=== PATIENT | male | born 1950 | race Caucasian/White ===

== ENCOUNTER 2016-10-16 08:56 | Emergency (ER) | payer OTHER ==
--- NOTE | 2016-10-16 09:28 | EDM.PDOC ---
ED HPI Trauma - General Chief Complaint: Lower Extremity Injury/Pain Stated Complaint: R LEG PAIN POST SINUS SURGERY Time Seen by Provider: 10/16/16 09:12 Source: Reports: Patient History Limitations: Reports: No limitations - History of Present Illness INITIAL COMMENTS - FREE TEXT/NARRATIVE: The patient presents with right thigh pain. This started today. He had sinus and nose surgery yesterday. He had 3 polyps removed from his sinuses and they fixed a deviated septum. He denies any injury to that leg. He has no history of DVT or PE. He has bilateral leg edema that is mild. He has no chest pain. He does have shortness of breath at times but he does have asthma. Occurred When: just prior to arrival Occurred Where: home Method of Injury: unknown Severity: moderate Pain/Injury Location: Reports: lower extremity, right (Thigh) Consciousness: Reports: no loss of consciousness Associated Symptoms: Reports: no other symptoms Allergies/ADRs: Allergies No Known Allergies Allergy (Verified 10/16/16 09:02) Home Medications: Ambulatory Orders Albuterol Inhaler. 1 - 2 puff INH ASDIRECTED 01/06/14 [Confirmed 10/16/16] Symbicort Inhaler. 2 puff INH BID 01/06/14 [Confirmed 10/16/16] Azithromycin [Zithromax] 250 mg PO DAILY 10/16/16 [Confirmed 10/16/16] Pantoprazole Sodium [Protonix] 20 mg PO BID 10/16/16 [Confirmed 10/16/16] Prednisone [IJD: Prednisone] 30 mg PO DAILY 10/16/16 [Confirmed 10/16/16] oxyCODONE 5 mg PO Q6HR PRN 10/16/16 [Confirmed 10/16/16] Past Medical History Respiratory History: Reports: Asthma Gastrointestinal History: Reports: GERD Other Gastrointestinal History: 8 colon surgery; colostomy and reanatomosis; reconstuctive surgery and mesh Genitourinary History: Reports: Renal calculus Psychiatric History: Reports: Anxiety Oncologic (Cancer) History: Reports: None - Past Surgical History HEENT Surgical History: Reports: Adenoidectomy, Tonsillectomy Social & Family History - Tobacco Use Smoking Status *Q: Former Smoker Month Tobacco Last Used: 1985 Second Hand Smoke Exposure: No - Alcohol Use Days Per Week of Alcohol Use: 7 Number of Drinks Per Day: 2 Total Drinks Per Week: 14 - Recreational Drug Use Recreational Drug Use: No Review of Systems - Review of Systems Review Of Systems: See Below Constitutional: Reports: no symptoms Eyes: Reports: no symptoms Ears: Reports: no symptoms Nose: Reports: no symptoms Mouth/Throat: Reports: no symptoms Respiratory: Reports: No Symptoms Cardiovascular: Reports: no symptoms GI/Abdominal: Reports: No symptoms Genitourinary: Reports: no symptoms Musculoskeletal: Reports: other (pain to the right thigh and mild edema to both legs) Trauma Exam - Physical Exam Exam: See Below Exam Limited By: No limitations General Appearance: Reports: alert, no apparent distress Head: Reports: atraumatic, normocephalic Ears: Reports: normal external exam Nose: Reports: other (Vani and tape to the front of his nose) Respiratory Exam: Reports: no respiratory distress, wheezing (mild) Cardiovascular: Reports: regular rate, rhythm, no murmur, other (Mild bilateral lower leg edema) GI/Abdominal: Reports: soft, non tender, no organomegaly Extremities: Reports: other (Pain upon palpation to the right lateral thigh. Mild edema to bilateral legs) Course - Vital Signs Last Recorded V/S: Last Vital Signs Temp 97.1 F 10/16/16 09:09 Pulse 95 10/16/16 09:09 Resp 16 10/16/16 09:09 BP 149/90 H 10/16/16 09:09 Pulse Ox 95 10/16/16 09:09 - Orders/Labs/Meds Orders: Active Orders 24 hr Category Date Time Status VL Duplex Lwr Ext Veins Ltd Rt [US] Stat Exams 10/16/16 09:16 Ordered - Re-Assessments/Exams Free Text/Narrative Re-Assessment/Exam: 10/16/16 09:32 I have ordered an US of his right leg to look for DVT. 10/16/16 10:47 The US looks good. There was some possible remnants of an old clot but it compressed good. Departure - Departure Time of Disposition: 10:50 Disposition: Home, Self-Care 01 Condition: good Clinical Impression: Right thigh pain Referrals: Antonietta Sr MD [Primary Care Provider] - Forms: ED Department Discharge Additional Instructions: Try ice to your leg for 15 minutes every other hour while awake for 2 days. Elevate your leg as much as you can for 2 days. Please return if you are worse. - My Orders Last 24 Hours: My Active Orders 10/16/16 09:16 VL Duplex Lwr Ext Veins Ltd Rt [US] Stat - Assessment/Plan Last 24 Hours: My Active Orders 10/16/16 09:16 VL Duplex Lwr Ext Veins Ltd Rt [US] Stat
[2016-10-16 10:51] VITALS: BP 151/91
--- NOTE | 2016-10-17 16:50 | US ---
Right lower extremity deep venous ultrasound: Duplex and color flow imaging was obtained of the right common femoral, superficial femoral, popliteal, posterior tibial and peroneal veins. Left common femoral vein was also evaluated. Findings: Hyperechoic areas are seen within the proximal greater saphenous vein and superficial femoral vein. This most likely represents scarring from old venous thrombosis. Normal phasic flow and augmentation seen throughout the right lower extremity. Lack of phasic flow seen within the posterior tibial vein but normal compression and augmentation seen within the posterior tibial vein. Impression: 1. Findings suspicious for old incomplete clot within the right greater saphenous and superficial femoral vein. Nothing seen to indicate acute deep venous thrombosis. If patient continues to be symptomatic, follow-up study could be obtained. Diagnostic code #2 I agree with preliminary report issued by [facility] (report finalized on 10/16/16, 12:33 PM Central Time)
== END 2016-10-16 11:11 | disposition home or self-care (01) ==
LOC: JD.ED 08:56
DX: M79.651 Pain in right thigh (principal); J45.909 Unspecified asthma, uncomplicated; K21.9 Gastro-esophageal reflux disease without esophagitis; F41.9 Anxiety disorder, unspecified; Z79.899 Other long term (current) drug therapy; Z87.891 Personal history of nicotine dependence
CPT/HCPCS: 93971-26-RT; 93971-RT; 99282; 99283-25; 99284-25

== ENCOUNTER 2019-12-30 13:32 | Emergency (ER) | payer OTHER ==
[2019-12-30 14:07] VITALS: BP 155/90; PULSE 74
[2019-12-30] MEDS ORDERED: Bupivacaine 0.25% 10 ML SDV INJECT ONE (14:47)
--- NOTE | 2019-12-30 14:48 | EDM.PDOC ---
ED HPI GENERAL MEDICAL PROBLEM - General Chief Complaint: Upper Extremity Injury/Pain Stated Complaint: ELBOW SWOLLEN Time Seen by Provider: 12/30/19 14:20 Source of Information: Reports: Patient, Family History Limitations: Reports: No Limitations (Spouse) - History of Present Illness INITIAL COMMENTS - FREE TEXT/NARRATIVE: 69-year-old male attends the ED with persistent swelling of his right elbow for over a month. No known trauma to the area. He states unfortunately the bursa is enlarging and starting to spread down the extensor surface of his proximal forearm. He states it is occasionally sore when he rests it on the armrest of the vehicle while driving. He is not on any blood thinners. He has been taking anti-inflammatory such as Motrin and Aleve with no effect. Onset: Sudden Onset Date: 11/26/19 Duration: Week(s):, Chronic, Getting Worse Location: Reports: Upper Extremity, Right (Right olecranon bursitis of the elbow.) Quality: Reports: Ache Severity: Moderate Improves with: Reports: None Worsens with: Reports: None Context: Reports: Other. Denies: Activity, Exercise, Lifting, Sick Contact, Trauma Associated Symptoms: Denies: Confusion (Ellen is occurrence and he cannot remember any trauma to the area.), Chest Pain, Cough, cough w sputum, Diaphoresis, Fever/Chills, Headaches, Loss of Appetite, Malaise, Rash, Seizure, Syncope Treatments INDEPENDENT CONSULTANT: Reports: NSAIDS (Sling Motrin.) Right Elbow Pain Score (Numeric/FACES): 2 - Related Data Allergies Allergy/AdvReac Type Severity Reaction Status Date / Time No Known Allergies Allergy Verified 12/30/19 14:07 Home Meds: Home Meds Albuterol Inhaler. 1 - 2 puff INH ASDIRECTED 01/06/14 [History] Symbicort Inhaler. 2 puff INH BID 01/06/14 [History] Azithromycin [Zithromax] 250 mg PO DAILY 10/16/16 [History] Pantoprazole Sodium [Protonix] 20 mg PO BID 10/16/16 [History] Prednisone [IJD: Prednisone] 30 mg PO DAILY 10/16/16 [History] oxyCODONE 5 mg PO Q6HR PRN 10/16/16 [History] Past Medical History HEENT History: Reports: Cataract Respiratory History: Reports: Asthma Gastrointestinal History: Reports: GERD Other Gastrointestinal History: 8 colon surgery; colostomy and reanatomosis;reconstuctive surgery and mesh Genitourinary History: Reports: Renal Calculus Musculoskeletal History: Reports: None Neurological History: Reports: None Psychiatric History: Reports: Anxiety Endocrine/Metabolic History: Reports: None Oncologic (Cancer) History: Reports: None Dermatologic History: Reports: None - Infectious Disease History Infectious Disease History: Reports: None - Past Surgical History HEENT Surgical History: Reports: Adenoidectomy, Tonsillectomy, Other (See Below) Other HEENT Surgeries/Procedures: lens in left eye Musculoskeletal Surgical History: Reports: None Social & Family History - Family History Family Medical History: Noncontributory - Tobacco Use Smoking Status *Q: Never Smoker - Caffeine Use Caffeine Use: Reports: None - Recreational Drug Use Recreational Drug Use: No - Living Situation & Occupation Living situation: Reports: Occupation: Employed Review of Systems - Review of Systems Review Of Systems: See Below Constitutional: Reports: No Symptoms Eyes: Reports: Glasses Ears: Reports: Other (Mildly hearing impaired. Does not wear) Nose: Reports: No Symptoms ( hearing aids) Mouth/Throat: Reports: No Symptoms Respiratory: Reports: No Symptoms Cardiovascular: Reports: No Symptoms. Denies: Chest Pain, Edema, Irregular Heart Rate, Syncope, Other GI/Abdominal: Reports: No Symptoms Genitourinary: Reports: Other (Urinary frequency. Nocturia x2. Known BPH.) Musculoskeletal: Reports: Back Pain, Joint Pain (Hips neck and shoulders at times.) Skin: Reports: No Symptoms Neurological: Reports: No Symptoms Psychiatric: Reports: No Symptoms ED EXAM, GENERAL - Physical Exam Exam: See Below Exam Limited By: No Limitations General Appearance: Alert, WD/WN, No Apparent Distress, Other (Temperature is 36.6 with a heart rate of 74 and sinus respiratory to 16 BP 155/90. Pulse ox 95 to 97% on room air) Eye Exam: Bilateral Eye: Normal Inspection (No blepharal pallor or scleral icterus.) Neck: Limited Range of Motion (Mild loss of lateral rotation and flexion), Tender Lateral ( due to osteoarthritic change. Mild bilateral tenderness of the cervical spine.). No: Carotid Bruit, Lymphadenopathy (L), Lymphadenopathy (R) Respiratory/Chest: No Respiratory Distress, Lungs Clear, Normal Breath Sounds, No Accessory Muscle Use Cardiovascular: Normal Peripheral Pulses, Regular Rate, Rhythm, No Edema, No Gallop, No Murmur, No Rub Extremities: Other (Examination of the right elbow shows a very large olecranon bursitis that is starting to protrude down the proximal extensor surface of his forearm. It is fluctuant nontender apparently was quite red yesterday but is very minimally warm to palpation and no erythema today.) Neurological: Alert, Oriented, CN II-XII Intact, Normal Cognition Psychiatric: Normal Affect, Normal Mood Skin Exam: Warm, Dry, Intact, Normal Color, No Rash Course - Vital Signs Last Recorded V/S: Last Vital Signs Temp 36.6 C 12/30/19 14:04 Pulse 74 12/30/19 14:04 Resp 16 12/30/19 14:04 BP 155/90 H 12/30/19 14:04 Pulse Ox 95 12/30/19 14:04 - Orders/Labs/Meds Meds: Medications Discontinued Medications Generic Name Dose Route Start Last Admin Trade Name Carolyn PRN Reason Stop Dose Admin Bupivacaine HCl 10 ml 12/30/19 14:47 Sensorcaine-Mpf 0.25% INJECT 12/30/19 14:48 ONETIME ONE Bupivacaine HCl Confirm 12/30/19 14:52 12/30/19 15:02 Sensorcaine-Mpf 0.5% Administered 12/30/19 14:53 10 ml Dose Administration 10 ml .ROUTE .STK-MED ONE Triamcinolone Acetonide 40 mg 12/30/19 14:47 Kenalog-40 INJECT 12/30/19 14:48 ONETIME ONE Triamcinolone Acetonide Confirm 12/30/19 14:52 12/30/19 15:02 Kenalog-40 Administered 12/30/19 14:53 40 mg Dose Administration 40 mg .ROUTE .STK-MED ONE - Radiology Interpretation Free Text/Narrative:: 69-year-old male attends the ED due to gradually increasing size of a right olecranon bursitis. He estimates been present for over a month. It is now seem to be developing a increased swelling over the proximal extensor surface of the forearm. He has no known history of trauma to the area. He has been taking Motrin and Aleve without relief. Discussed the options with him and decision made to proceed with drainage under local anesthetic and instillation of Kenalog . I did x-rayed about 10 days ago and no problems were identified in the elbow through the walk-in clinic. - Re-Assessments/Exams Free Text/Narrative Re-Assessment/Exam: 12/30/19 15:25 patient tolerated the procedure well. Drained approximate 32 mils of serosanguineous fluid from his right olecranon bursa. Instilled 40 mg of Kenalog into the bursa without issue. Patient is to follow-up if the inflammation and swelling does not improve dramatically over the next 3 to 4 weeks. Departure - Departure Time of Disposition: 15:17 Disposition: Home, Self-Care 01 Condition: Fair Clinical Impression: Olecranon bursitis of right elbow - Discharge Information *PRESCRIPTION DRUG MONITORING PROGRAM REVIEWED*: Not Applicable Instructions: Elbow Bursitis, [id number] Referrals: Caleb Sotomayor MD [Primary Care Provider] - Forms: ED Department Discharge Additional Instructions: Evaluation in the emergency room today in regards to persistent swelling of the right elbow which we call olecranon bursitis. No known injuries although is usually mild trauma that sets it off. The bursa secretes an excessive amount of fluid causing the swelling. We drained the bursa today of approximately 32 mils of serosanguineous fluid without any signs of infection. I placed 40 mg of Kenalog inside the bursa to try and reduce the inflammation over the next week or 2. If it reoccurs in the next 3 weeks it should be drained again. In 600 mg every 6 hours as necessary for pain relief. Sepsis Event Note (ED) - Evaluation Sepsis Screening Result: No Definite Risk - Focused Exam Vital Signs: Vital Signs Temp Pulse Resp BP Pulse Ox 12/30/19 14:04 36.6 C 74 16 155/90 H 95 Arthrocentesis - Arthrocentesis Arthrocentesis Indication: fluid aspiration Location: right, bursa (Right elbow) Prep: CDC/MBT Guidelines, Sterile Drapes, Chlorhexidine Local anesthesia: other (Bupivacaine 0.5%) Local anesthesia volume: 3cc Needle: 18 gauge Fluid: bloody Volume of fluid removed (mls): 32 Medication Instilled: marcaine mls: (3 mils), triamcinolone mgs: (40 mg) Complications: No Dressing: adhesive dressing
[2019-12-30] MEDS ORDERED: Triamcinolone Acetonide 40 MG/ML 1 ML SDV ONE (14:52)
[2019-12-30] MEDS ORDERED: Bupivacaine 0.5% 10 ML SDV ONE (14:52)
== END 2019-12-30 15:38 | disposition home or self-care (01) ==
LOC: JD.ED 13:32
DX: M70.21 Olecranon bursitis, right elbow (principal); K21.9 Gastro-esophageal reflux disease without esophagitis; J45.909 Unspecified asthma, uncomplicated; Z79.899 Other long term (current) drug therapy; Z87.442 Personal history of urinary calculi
CPT/HCPCS: 20605; 99283; J3301; J3490; 20610; 99282

== ENCOUNTER 2020-01-23 09:05 | Emergency (ER) | payer OTHER ==
[2020-01-23 09:15] VITALS: BP 144/94; PULSE 76
--- NOTE | 2020-01-23 09:37 | EDM.PDOC ---
ED HPI GENERAL MEDICAL PROBLEM - General Chief Complaint: Upper Extremity Injury/Pain Stated Complaint: R ELBOW INJURY Time Seen by Provider: 01/23/20 09:20 Source of Information: Reports: Patient History Limitations: Reports: No Limitations - History of Present Illness INITIAL COMMENTS - FREE TEXT/NARRATIVE: The patient presents with right elbow pain and swelling. He was here about 3 weeks ago for right elbow olecranon bursitis and it was drained and then he was given kenalog. He said he was doing fine until this morning when he was getting into his truck he grabbed the door handle and twisted his arm and now he has pain and swelling again. Onset: Sudden Duration: Minutes: Location: Reports: Lower Extremity, Right (elbow) Quality: Reports: Sharp Severity: Moderate Improves with: Reports: Immobilization Worsens with: Reports: Movement Context: Denies: Trauma Associated Symptoms: Reports: No Other Symptoms Right Elbow Pain Score (Numeric/FACES): 6 - Related Data Allergies Allergy/AdvReac Type Severity Reaction Status Date / Time No Known Allergies Allergy Verified 01/23/20 09:15 Home Meds: Home Meds Albuterol Inhaler. 1 - 2 puff INH ASDIRECTED 01/06/14 [History] Symbicort Inhaler. 2 puff INH BID 01/06/14 [History] Azithromycin [Zithromax] 250 mg PO DAILY 10/16/16 [History] Pantoprazole Sodium [Protonix] 20 mg PO BID 10/16/16 [History] Prednisone [IJD: Prednisone] 30 mg PO DAILY 10/16/16 [History] oxyCODONE 5 mg PO Q6HR PRN 10/16/16 [History] Past Medical History HEENT History: Reports: Cataract Respiratory History: Reports: Asthma Gastrointestinal History: Reports: GERD Other Gastrointestinal History: 8 colon surgery; colostomy and reanatomosis;reconstuctive surgery and mesh Genitourinary History: Reports: Renal Calculus Musculoskeletal History: Reports: None Neurological History: Reports: None Psychiatric History: Reports: Anxiety Endocrine/Metabolic History: Reports: None Oncologic (Cancer) History: Reports: None Dermatologic History: Reports: None - Infectious Disease History Infectious Disease History: Reports: None - Past Surgical History HEENT Surgical History: Reports: Adenoidectomy, Tonsillectomy, Other (See Below) Other HEENT Surgeries/Procedures: lens in left eye Musculoskeletal Surgical History: Reports: None Social & Family History - Family History Family Medical History: Noncontributory - Tobacco Use Smoking Status *Q: Current Every Day Smoker Years of Tobacco use: 1 Packs/Tins Daily: 1 - Caffeine Use Caffeine Use: Reports: Coffee - Recreational Drug Use Recreational Drug Use: No - Living Situation & Occupation Living situation: Reports: Occupation: Employed Review of Systems - Review of Systems Review Of Systems: See Below Constitutional: Reports: No Symptoms Eyes: Reports: No Symptoms Ears: Reports: No Symptoms Nose: Reports: No Symptoms Mouth/Throat: Reports: No Symptoms Respiratory: Reports: No Symptoms Cardiovascular: Reports: No Symptoms GI/Abdominal: Reports: No Symptoms Genitourinary: Reports: No Symptoms Musculoskeletal: Reports: Other (Right elbow pain and swelling) ED EXAM, GENERAL - Physical Exam Exam: See Below Exam Limited By: No Limitations General Appearance: Alert, No Apparent Distress Ears: Normal External Exam Nose: Normal Inspection Throat/Mouth: Normal Inspection Neck: Normal Inspection Respiratory/Chest: No Respiratory Distress Extremities: Other (Right elbow pain upon palpation with edema to the olecronon process. Good sensation and pulses distally.) ED TRAUMA EXTREMITY PROCEDURES - I&D Site: Right elbow Skin Prep: Other (Chlorprep) Local Anesthesia: Lidocaine: Other (LET) Area Incised With: Needle Drainage: Bloody Probed to Break Up Loculations: No Complications: No Course - Vital Signs Last Recorded V/S: Last Vital Signs Temp 97.6 F 01/23/20 09:12 Pulse 76 01/23/20 09:12 Resp 20 01/23/20 09:12 BP 144/94 H 01/23/20 09:12 Pulse Ox 95 01/23/20 09:12 - Orders/Labs/Meds Orders: Active Orders 24 hr Category Date Time Status CRYSTALS,BODY FLUID [BF] Stat Lab 01/23/20 10:41 Ordered CULTURE BODY FLUID + SMEAR [RM] Stat Lab 01/23/20 10:41 Ordered SYNOVIAL FLUID ANALYSIS [BF] Stat Lab 01/23/20 10:40 Ordered Meds: Medications Discontinued Medications Generic Name Dose Route Start Last Admin Trade Name Freq PRN Reason Stop Dose Admin Lidocaine/Tetracaine 1 ml 01/23/20 09:43 01/23/20 09:50 Let Soln TOP 01/23/20 09:44 1 ml ONETIME ONE Administration Triamcinolone Acetonide 20 mg 01/23/20 09:51 Kenalog-40 INJECT 01/23/20 09:52 ONETIME ONE - Re-Assessments/Exams Free Text/Narrative Re-Assessment/Exam: 01/23/20 09:39 I have ordered an x-ray of his elbow. 01/23/20 10:43 His x-ray looks good. I put LET over the olecranon process and I drained about 35mls of bloody fluid. I then put some kenalog 20mg in the bursa. I put a pressure dressing on him. I sent the fluid for culture and cell analysis. I will have him follow up with Dr Elise. Departure - Departure Time of Disposition: 10:50 Disposition: Home, Self-Care 01 Condition: Good Clinical Impression: Olecranon bursitis of right elbow - Discharge Information *PRESCRIPTION DRUG MONITORING PROGRAM REVIEWED*: Not Applicable *COPY OF PRESCRIPTION DRUG MONITORING REPORT IN PATIENT [place]: Not Applicable Referrals: Caleb Sotomayor MD [Primary Care Provider] - Andrew Elise MD [Physician] - 1 Week Forms: ED Department Discharge Additional Instructions: Leave the dressing on until tonight. After that clean the wound with warm soapy water 2 times per day and apply antibiotic ointment after. Follow up with Dr Elise. Sepsis Event Note (ED) - Evaluation Sepsis Screening Result: No Definite Risk - Focused Exam Vital Signs: Vital Signs Temp Pulse Resp BP Pulse Ox 01/23/20 09:12 97.6 F 76 20 144/94 H 95 - My Orders Last 24 Hours: My Active Orders 01/23/20 10:40 SYNOVIAL FLUID ANALYSIS [BF] Stat 01/23/20 10:41 CRYSTALS,BODY FLUID [BF] Stat CULTURE BODY FLUID + SMEAR [RM] Stat - Assessment/Plan Last 24 Hours: My Active Orders 01/23/20 10:40 SYNOVIAL FLUID ANALYSIS [BF] Stat 01/23/20 10:41 CRYSTALS,BODY FLUID [BF] Stat CULTURE BODY FLUID + SMEAR [RM] Stat
[2020-01-23] MEDS ORDERED: Lidocaine/EPINEPHrine/Tetracaine Soln 1 ML TOP ONE (09:43)
[2020-01-23] MEDS ORDERED: Triamcinolone Acetonide 40 MG/ML 1 ML MDV INJECT ONE (09:51)
--- NOTE | 2020-01-23 10:04 | CR ---
Right elbow: 4 views of the right elbow were obtained. Diffuse soft tissue swelling is seen posteriorly. No joint effusion is seen. Joint spaces are preserved. No acute fracture or other bony abnormality is appreciated. Impression: 1. Diffuse posterior soft tissue swelling. 2. No acute bony abnormality is appreciated. Diagnostic code #3 This report was dictated in MDT
== END 2020-01-23 10:50 | disposition home or self-care (01) ==
LOC: JD.ED 09:05
DX: M70.31 Other bursitis of elbow, right elbow (principal); J45.909 Unspecified asthma, uncomplicated; K21.9 Gastro-esophageal reflux disease without esophagitis; F17.210 Nicotine dependence, cigarettes, uncomplicated; Z79.899 Other long term (current) drug therapy
CPT/HCPCS: 20605; 73080; 87070; 87205; 89060; 99283; J3301; 99282

== ENCOUNTER 2020-02-14 15:42 | Emergency (ER) | payer OTHER ==
[2020-02-14 16:00] VITALS: BP 157/93; PULSE 66
--- NOTE | 2020-02-14 16:49 | EDM.PDOC ---
ED HPI GENERAL MEDICAL PROBLEM - General Chief Complaint: Upper Extremity Injury/Pain Stated Complaint: ABSCESS ON ELBOW Time Seen by Provider: 02/14/20 16:49 - History of Present Illness INITIAL COMMENTS - FREE TEXT/NARRATIVE: 69-year-old male presents the emergency room with what he thinks is an abscess on his elbow. The patient has some discomfort above his elbow especially when he is trying to flex his elbow. Several weeks ago the patient tried to pull himself up and had something give out in his lower upper arm. He is not sure if he bumped his elbow but he developed an olecranon bursitis. X-rays were done shortly after the time of injury that were unrevealing except for some soft tissue swelling. The patient can fully extend his elbow but if he tries to internally rotate his arm too much he gets some discomfort in his lower upper arm on the flexor musculature. His regular physician did drain this bursa that does not look infected according to the lab results he has on his phone. He does not have any fevers or chills no redness or warmth over the area. - Related Data Allergies Allergy/AdvReac Type Severity Reaction Status Date / Time No Known Allergies Allergy Verified 01/23/20 09:15 Home Meds: Home Meds Albuterol Inhaler. 1 - 2 puff INH ASDIRECTED 01/06/14 [History] Symbicort Inhaler. 2 puff INH BID 01/06/14 [History] Past Medical History HEENT History: Reports: Cataract Respiratory History: Reports: Asthma Gastrointestinal History: Reports: GERD Other Gastrointestinal History: 8 colon surgery; colostomy and reanatomosis;reconstuctive surgery and mesh Genitourinary History: Reports: Renal Calculus Musculoskeletal History: Reports: None Neurological History: Reports: None Psychiatric History: Reports: Anxiety Endocrine/Metabolic History: Reports: None Oncologic (Cancer) History: Reports: None Dermatologic History: Reports: None - Infectious Disease History Infectious Disease History: Reports: None - Past Surgical History HEENT Surgical History: Reports: Adenoidectomy, Tonsillectomy, Other (See Below) Other HEENT Surgeries/Procedures: lens in left eye Musculoskeletal Surgical History: Reports: None Social & Family History - Family History Family Medical History: Noncontributory - Tobacco Use Smoking Status *Q: Never Smoker Second Hand Smoke Exposure: No - Caffeine Use Caffeine Use: Reports: Coffee - Living Situation & Occupation Living situation: Reports: Occupation: Employed Review of Systems - Review of Systems Review Of Systems: See Below Constitutional: Reports: No Symptoms Respiratory: Reports: No Symptoms Cardiovascular: Reports: No Symptoms GI/Abdominal: Reports: No Symptoms Neurological: Reports: No Symptoms ED EXAM, GENERAL - Physical Exam Exam: See Below Exam Limited By: No Limitations General Appearance: Alert, No Apparent Distress Head: Atraumatic, Normocephalic Neck: Normal Inspection, Supple, Non-Tender, Full Range of Motion Respiratory/Chest: No Respiratory Distress, Lungs Clear, Normal Breath Sounds Cardiovascular: Regular Rate, Rhythm, No Edema, No Murmur Extremities: Other (Patient is is consistent with an olecranon bursa he has no redness or warmth over the area no drainage. The patient can fully extend his elbow supination pronation are fairly well intact but when he tries to go to full pronation he gets some discomfort in his lower portion of his upper arm flexor surface and he has some muscle tenderness here with palpation) Course - Vital Signs Last Recorded V/S: Last Vital Signs Temp 36.6 C 02/14/20 15:56 Pulse 66 02/14/20 15:56 Resp 16 02/14/20 15:56 BP 157/93 H 02/14/20 15:56 Pulse Ox 97 02/14/20 15:56 - Re-Assessments/Exams Free Text/Narrative Re-Assessment/Exam: 02/14/20 18:17 Repeat x-rays are negative for acute fracture dislocation or other bony abnormality he is got soft tissue swelling in the area of the olecranon bursa and slightly proximal to this starting to come up the posterior aspect of the upper arm. I discussed the findings of this with the patient will have him start using an Naresh wrap over the area to loosely compress the area he was using an Naresh wrap before but he I think it sounds like it was going on too tight this will help this from developing more wont necessarily make it go away any sooner. Will not reaspirated with the risk of infection and the fluid will reaccumulate fairly quickly Departure - Departure Time of Disposition: 18:18 Disposition: Home, Self-Care 01 Clinical Impression: Olecranon bursitis of right elbow - Discharge Information Referrals: Caleb Sotomayor MD [Primary Care Provider] - Forms: ED Department Discharge Additional Instructions: Turn to the emergency room with any questions problems or worsening symptoms. Use the Naresh wrap should be a little snug but not over tied if is leaving corcoran in your skin are causing your hand to puff up it is too tight if it causes any numbness or tingling in your hand is too tight. Error on the side of keeping it on the loose side. Follow-up with your regular physician this next week for recheck. Sepsis Event Note (ED) - Evaluation Sepsis Screening Result: No Definite Risk - Focused Exam Vital Signs: Vital Signs Temp Pulse Resp BP Pulse Ox 02/14/20 15:56 36.6 C 66 16 157/93 H 97
--- NOTE | 2020-02-14 18:00 | CR ---
Right elbow: 4 views of the right elbow were obtained. Comparison: No previous elbow study. Joint spaces are preserved. No joint effusion is seen. No acute fracture, dislocation or other bony abnormality is identified. Soft tissue swelling is seen posteriorly which appears slightly proximal to the olecranon bursa. Impression: 1. Soft tissue swelling slightly proximal to the expected region of the olecranon bursa. 2. No bony abnormality is appreciated on right elbow study. Diagnostic code #3 This report was dictated in MDT
== END 2020-02-14 18:40 | disposition home or self-care (01) ==
LOC: JD.ED 15:42
DX: M70.21 Olecranon bursitis, right elbow (principal); J45.909 Unspecified asthma, uncomplicated; Z79.899 Other long term (current) drug therapy
CPT/HCPCS: 73080-26-RT; 73080-RT; 99282; 99283-25

== ENCOUNTER 2020-04-07 03:18 | Emergency (ER) | payer OTHER ==
[2020-04-07 03:29] VITALS: BP 164/103; PULSE 72
[2020-04-07] MEDS ORDERED: Ondansetron 4 MG/2 ML SDV IVPUSH ONE (03:47)
[2020-04-07] MEDS ORDERED: HYDROmorphone 1 MG/ML Syringe IVPUSH STA (03:47)
--- NOTE | 2020-04-07 03:55 | EDM.PDOC ---
ED HPI GENERAL MEDICAL PROBLEM - General Chief Complaint: Abdominal Pain Stated Complaint: abdominal pain Time Seen by Provider: 04/07/20 03:28 Source of Information: Reports: Patient History Limitations: Reports: No Limitations - History of Present Illness INITIAL COMMENTS - FREE TEXT/NARRATIVE: Mr. De Leon is a very pleasant 70-year-old gentleman who now presents to the ED with right upper quadrant abdominal pain. He states that he developed sharp right upper quadrant abdominal pain around 18:30 to 19:00, after eating dinner consisting of meat loaf, mashed potatoes with gravy, and peas, around 17:00 to 17:30 last night. The pain radiates through to his lower right back. He has not identified any modifiers. No associated nausea, vomiting, or diarrhea. No recent fever. No associated urinary symptoms. The patient states that he has had similar pain in the past, when he experienced a kidney stone. The patient did not take any [id number] or home remedies prior to coming to the ED. Here in the ED, the patient's initial BP is found to be elevated at 164/103, otherwise, he is hemodynamically stable, afebrile, saturating 96% on room air. The patient states that he last ate around 17:30 last night. Other than tonight's abdominal pain, the patient states that he has a slight chronic cough. Otherwise, he denies having a recent fever, chills, sore throat, ear pain, nasal or sinus congestion, dyspnea, chest pain, palpitations, nausea, vomiting, constipation, diarrhea, abdominal pain, urinary symptoms, recent weight gain or weight loss, recent bloody bowel movements or black bowel movements, recent joint aches, headaches, or rashes. The patient's PCP is Dr. Caleb Sotomayor. He has not received an influenza vaccine this season, but agreed to receive one here today. Right Abdominal Pain Score (Numeric/FACES): 8 - Related Data Allergies Allergy/AdvReac Type Severity Reaction Status Date / Time No Known Allergies Allergy Verified 04/07/20 03:29 Home Meds: Home Meds Albuterol Inhaler. 1 - 2 puff INH ASDIRECTED 01/06/14 [History] Symbicort Inhaler. 2 puff INH BID 01/06/14 [History] Acetaminophen/oxyCODONE [Percocet 325-5 MG] 1 - 2 tab PO Q6H PRN #30 tab 04/07/20 [Rx] Ondansetron [Zofran ODT] 1 tab PO Q8H PRN #16 tab.dis 04/07/20 [Rx] Past Medical History Respiratory History: Reports: Asthma (PFT-proven) Gastrointestinal History: Reports: Diverticulosis (diverticulitis), GERD Genitourinary History: Reports: Renal Calculus Psychiatric History: Reports: Anxiety (untreated) Endocrine/Metabolic History: Reports: None - Past Surgical History HEENT Surgical History: Reports: Adenoidectomy, Cataract Surgery (bilateral), Oral Surgery (dental extractions), Tonsillectomy GI Surgical History: Reports: Colon (Hemicolectomy for diverticulitis, with 2 subsequent colostomies and an ileostomy, with reversal), Hernia, Inguinal (right) Social & Family History - Family History Family Medical History: Noncontributory - Tobacco Use Tobacco Use Status *Q: Former Tobacco User Tobacco Use Within Last Twelve Months: Vaping (Nicotine) Years of Tobacco use: 29 Packs/Tins Daily: 0.5 Month/Year Tobacco Last Used: Quit 1984 - Caffeine Use Caffeine Use: Reports: Coffee - Alcohol Use Alcohol Use History: Yes Alcohol Use Frequency: Socially - Recreational Drug Use Recreational Drug Use: No - Living Situation & Occupation Living situation: Reports: , with Spouse, with Family (Son + his girlfriend) Occupation: Employed ([employer] truck driver) ED ROS GENERAL - Review of Systems Review Of Systems: Comprehensive ROS is negative, except as noted in HPI. ED EXAM, GI/ABD - Physical Exam Exam: See Below Exam Limited By: No Limitations General Appearance: Alert, WD/WN, Mild Distress (appears uncomfortable) Eyes: Bilateral: Normal Appearance, EOMI Ears: Normal External Exam, Hearing Grossly Normal Nose: Normal Inspection Throat/Mouth: Normal Inspection, No Airway Compromise, Other (Wearing a mask) Head: Atraumatic, Normocephalic Neck: Normal Inspection, Full Range of Motion Respiratory/Chest: No Respiratory Distress, Lungs Clear, Normal Breath Sounds, No Accessory Muscle Use Cardiovascular: Normal Peripheral Pulses, Regular Rate, Rhythm, No Edema, No Gallop, No JVD, No Murmur, No Rub GI/Abdominal Exam: Normal Bowel Sounds, Soft, No Organomegaly, No Distention, No Abnormal Bruit, No Mass, Tender (Exquisite, to the right upper quadrant only. Essentially nontender elsewhere.) Back Exam: Normal Inspection, Full Range of Motion. No: CVA Tenderness (L), CVA Tenderness (R) Extremities: Normal Inspection, Normal Range of Motion, No Pedal Edema, Normal Capillary Refill Neurological: Alert, Oriented, Normal Cognition, No Motor/Sensory Deficits Psychiatric: Normal Affect Skin Exam: Warm, Dry, Intact, Normal Color, No Rash Course - Vital Signs Last Recorded V/S: Last Vital Signs Temp 36.2 C 04/07/20 03:26 Pulse 72 04/07/20 03:26 Resp 16 04/07/20 03:26 BP 164/103 H 04/07/20 03:26 Pulse Ox 96 04/07/20 03:26 - Orders/Labs/Meds Orders: Active Orders 24 hr Category Date Time Status Influenza Vaccine Charge [RC] .DISCHARGE Care 04/07/20 03:49 Active Abdomen Ltd [US] Stat Exams 04/07/20 03:49 Taken Abdomen Pelvis w Cont [CT] Stat Exams 04/07/20 03:47 Taken Sodium Chloride 0.9% [Normal Saline] 1,000 ml Med 04/07/20 04:00 Active IV ASDIRECTED Medication Orders Sodium Chloride (Normal Saline) 1,000 mls @ 150 mls/hr IV ASDIRECTED AARON Last Admin: 04/07/20 03:58 Dose: 150 mls/hr Documented by: SELENE Labs: Laboratory Tests 04/07/20 04/07/20 Range/Units 03:35 03:35 WBC 13.43 H (4.23-9.07) K/mm3 RBC 5.15 (4.63-6.08) M/mm3 Hgb 16.5 D (13.7-17.5) gm/dl Hct 48.8 (40.1-51.0) % MCV 94.8 H D (79.0-92.2) fl MCH 32.0 (25.7-32.2) pg MCHC 33.8 (32.2-35.5) g/dl RDW Std Deviation 42.3 (35.1-43.9) fL Plt Count 198 D (163-337) K/mm3 MPV 10.1 (9.4-12.3) fl Neutrophils % (Manual) 88 H (40-60) % Band Neutrophils % 0 (0-10) % Lymphocytes % (Manual) 6 L (20-40) % Atypical Lymphs % 0 % Monocytes % (Manual) 4 (2-10) % Eosinophils % (Manual) 2 (0.8-7.0) % Basophils % (Manual) 0 L (0.2-1.2) Platelet Estimate Adequate Plt Morphology Comment Normal RBC Morph Comment Normal Sodium 137 (136-145) mEq/L Potassium 4.3 (3.5-5.1) mEq/L Chloride 101 (98-107) mEq/L Carbon Dioxide 28 (21-32) mEq/L Anion Gap 12.3 (5-15) BUN 14 (7-18) mg/dL Creatinine 1.1 (0.7-1.3) mg/dL Est Cr Clr Drug Dosing TNP Estimated GFR (MDRD) > 60 (>60) mL/min BUN/Creatinine Ratio 12.7 L (14-18) Glucose 127 H (80-115) mg/dL Calcium 9.1 (8.5-10.1) mg/dL Magnesium 1.8 (1.8-2.4) mg/dl Total Bilirubin 0.7 (0.2-1.0) mg/dL AST 16 (15-37) U/L ALT 26 (16-63) U/L Alkaline Phosphatase 90 (46-116) U/L Total Protein 6.7 (6.4-8.2) g/dl Albumin 3.6 (3.4-5.0) g/dl Globulin 3.1 gm/dL Albumin/Globulin Ratio 1.2 (1-2) Lipase 389 (73-393) U/L Meds: Medications Generic Name Dose Route Start Last Admin Trade Name Freq PRN Reason Stop Dose Admin Sodium Chloride 1,000 mls @ 150 mls/hr 04/07/20 04:00 04/07/20 03:58 Normal Saline IV 150 mls/hr ASDIRECTED AARON Administration Discontinued Medications Generic Name Dose Route Start Last Admin Trade Name Freq PRN Reason Stop Dose Admin Diatrizoate Meglum/Diatrizoate Sod 120 ml 04/07/20 06:59 04/07/20 07:01 Gastrografin 37% PO 04/07/20 07:00 120 ml ONETIME ONE Administration Hydromorphone HCl 1 mg 04/07/20 03:47 04/07/20 03:59 Dilaudid IVPUSH 04/07/20 03:48 1 mg ONETIME STA Administration Influenza Virus Vaccine 1 each 04/07/20 03:49 Pharmacy To Dose - Influenza Vaccine IM 04/07/20 03:50 ONETIME ONE Influenza Virus Vaccine 240 mcg 04/07/20 04:00 Fluzone High-Dose Quad 2020-21 IM 04/07/20 04:01 .ONCE ONE Iopamidol 100 ml 04/07/20 06:59 04/07/20 07:00 Isovue-300 (61%) IVPUSH 04/07/20 07:00 100 ml ONETIME ONE Administration Ondansetron HCl 4 mg 04/07/20 03:47 04/07/20 03:58 Zofran IVPUSH 04/07/20 03:48 4 mg ONETIME ONE Administration Sodium Chloride 10 ml 04/07/20 06:59 04/07/20 07:00 Saline Flush FLUSH 04/07/20 07:00 10 ml ONETIME ONE Administration - Re-Assessments/Exams Free Text/Narrative Re-Assessment/Exam: 04/07/20 03:50 As above, the patient developed right upper quadrant abdominal pain that radiates through to his lower right back around an hour after eating a fatty meal last night. No associated nausea, vomiting, or diarrhea. He is afebrile. On examination, he is exquisitely tender to his right upper quadrant, and he has no CVA tenderness. While the patient states that his symptoms are similar to her prior kidney stone, his presentation is not at all consistent with a ureterolith, but is consistent with acute cholecystitis. I have ordered an evaluation that includes blood work, an ultrasound of the right upper quadrant, to be followed by a CT of the abdomen and pelvis with oral and IV contrast. In the meantime, the patient will be given IV Dilaudid, IV Zofran, and IV fluid. 04/07/20 05:10 The patient's CBC is remarkable for WBC count elevated at 13.43, but with 0% b andemia, and the remainder of his CBC is unremarkable. His CMP is remarkable for blood glucose mildly elevated at 127, with the remainder of his CMP being unremarkable. His magnesium level is within normal limits at 1.8. His lipase is within normal limits at 389. 10/19/20 06:19 Ultrasound of the right upper quadrant is read by [facility] as: 1. Gallbladder with nonmobile layering stones or dense sludge, without significant wall thickening or pericholecystic fluid. 2. Pancreas obscured by bowel gas. 3. Aorta not well visualized, dilated up to 3.4 cm proximally. Consider alternate imaging for more complete evaluation or otherwise follow-up in 2 years. 04/07/20 08:14 CT of the abdomen and pelvis with oral and IV contrast is read by [facility] as: 1. Thinning of the anterior abdominal wall musculature with small hernias as above, including a small supraumbilical midline hernia which contains a short segment of nonobstructed small bowel. 2. Mildly fatty liver. 3. Mild sigmoid colonic diverticulosis without evidence for diverticulitis. 4. Moderate hiatal hernia. 5. Small fat-containing bilateral inguinal hernias. 6. Large prostate containing coarse calcifications. 04/07/20 08:52 Test results discussed with the patient. He states that he is feeling considerably better. I believe that his pain is from his gallbladder, although I cannot prove it. Further evaluation, including a HIDA scan, is necessary. I will therefore discharge him home with prescriptions for Percocet and Zofran, and the advice that he eat as low-fat a diet as possible. I will have him follow-up with Dr. Davis for further evaluation. Departure - Departure Time of Disposition: 08:53 Disposition: Home, Self-Care 01 Condition: Good Clinical Impression: Right upper quadrant abdominal pain of unknown etiology - Discharge Information *PRESCRIPTION DRUG MONITORING PROGRAM REVIEWED*: Not Applicable *COPY OF PRESCRIPTION DRUG MONITORING REPORT IN PATIENT [place]: Not Applicable Prescriptions: Acetaminophen/oxyCODONE [Percocet 325-5 MG] 1 - 2 tab PO Q6H PRN #30 tab PRN Reason: Pain (Severe 7-10) Ondansetron [Zofran ODT] 1 tab PO Q8H PRN #16 tab.dis PRN Reason: Nausea/Vomiting Referrals: Devon Davis MD [Physician] - Caleb Sotomayor MD [Physician] - Forms: ED Department Discharge Additional Instructions: You were seen in the emergency room after developing upper right abdominal pain that radiated through to your right back. Work-up in the ER included blood work, an ultrasound of your right upper quadrant, and a CT of your abdomen and pelvis with oral and IV contrast. Your blood work was unremarkable. The ultrasound found that you have gallstones, but no associated inflammation, and the CT scan did not find anything that might explain your upper right abdominal pain. Based on your history, physical exam, and ER tests, your abdominal pain is most likely due to your gallbladder, however, more testing is necessary. We recommend that you eat as low-fat a diet as tolerable. Any fat in your diet may cause you to have pain. You have been provided with prescriptions for the opioid pain reliever Percocet and the antinausea medicine Zofran. Take 1 to 2 tablets of Percocet up to every 6 hours, as needed for pain. If you take Percocet, do not drive or operate heavy machinery for 12 hours afterwards. Percocet may cause constipation, so consider taking a stool softener. You may dissolve 1 tablet of Zofran on your tongue up to every 8 hours, as needed for nausea/vomiting. Stay adequately hydrated. Follow-up with the Surgeon Dr. Devon Davis at the next available appointment, for further evaluation. If any other problems, please do not hesitate to return to the ER. Sepsis Event Note (ED) - Evaluation Sepsis Screening Result: No Definite Risk - Focused Exam Vital Signs: Vital Signs Temp Pulse Resp BP Pulse Ox 04/07/20 03:26 36.2 C 72 16 164/103 H 96 - My Orders Last 24 Hours: My Active Orders 04/07/20 03:47 Abdomen Pelvis w Cont [CT] Stat 04/07/20 03:49 Influenza Vaccine Charge [RC] .DISCHARGE Abdomen Ltd [US] Stat 04/07/20 04:00 Sodium Chloride 0.9% [Normal Saline] 1,000 ml IV ASDIRECTED - Assessment/Plan Last 24 Hours: My Active Orders 04/07/20 03:47 Abdomen Pelvis w Cont [CT] Stat 04/07/20 03:49 Influenza Vaccine Charge [RC] .DISCHARGE Abdomen Ltd [US] Stat 04/07/20 04:00 Sodium Chloride 0.9% [Normal Saline] 1,000 ml IV ASDIRECTED
[2020-04-07] MEDS ORDERED: Sodium Chloride 0.9% 1,000 ML IV SCH (04:00)
[2020-04-07] MEDS ORDERED: FLU Vacc QV2020-21(65YR UP)/PF 240 MCG/0.7 ML Syringe IM ONE (04:00)
[2020-04-07] MEDS ORDERED: Diatrizoate Meglumine/Diatrizoate Sodium 37% 120 ML Bottle PO ONE (06:59)
[2020-04-07] MEDS ORDERED: Sodium Chloride 0.9% 10 ML Syringe FLUSH ONE (06:59)
[2020-04-07] MEDS: Iopamidol 612 MG/ML 100 ML Bottle IVPUSH ONE (07:00)
--- NOTE | 2020-04-15 14:41 | CT ---
"PROCEDURE INFORMATION: Exam: CT Abdomen And Pelvis With Contrast Exam date and time: 04/07/2020 6:03 AM Age: 70 years old Clinical indication: Abdominal pain; Patient HX: Ruq pain tenderness TECHNIQUE: Imaging protocol: Computed tomography of the abdomen and pelvis with intravenous contrast. Radiation optimization: All CT scans at this facility use at least one of these dose optimization techniques: automated exposure control; mA and/or kV adjustment per patient size (includes targeted exams where dose is matched to clinical indication); or iterative reconstruction. Contrast material: ISOVUE; Contrast volume: 100 ml; Contrast route: INTRAVENOUS (IV); COMPARISON: OT Abdomen Ltd 04/07/2020 4:40 AM FINDINGS: Lungs: The visualized lung bases demonstrate minor dependent atelectasis. Mediastinal space: There is a moderate-sized hiatal hernia. Liver: The liver is mildly fatty in density. It appears otherwise unremarkable. Gallbladder and bile ducts: No gallstones are evident, but ultrasound would be more sensitive. No gross biliary ductal dilatation. Pancreas: Normal. No ductal dilation. Spleen: The spleen contains a 2.3 cm cyst, which is benign and does not require follow-up. It appears otherwise unremarkable. Adrenals: Normal. No mass. Kidneys and ureters: The right kidney demonstrates mild cortical scarring. The left kidney contains a 4 mm nonobstructing stone and demonstrates mild cortical scarring. The kidneys appear otherwise unremarkable. Stomach and bowel: The small bowel is not obstructed. There is mild sigmoid colonic diverticulosis without evidence for diverticulitis. The large bowel is otherwise grossly unremarkable in appearance. Appendix: No evidence of appendicitis. СВЕТЛАНА BROCK | Final Radiology Report CONFIDENTIALITY STATEMENT This report is intended only for use by the referring physician, and only in accordance with law. If you received this in error, call [phone]. Page 2 of 2 Intraperitoneal space: No free air or significant free fluid. Vasculature: The abdominal aorta is nonaneurysmal. Atherosclerotic vascular calcifications are noted. Lymph nodes: Unremarkable. No enlarged lymph nodes. Urinary bladder: Unremarkable as visualized. Reproductive: The prostate is large, measuring 4.9 x 4.1 cm, and contains coarse calcifications. Bones/joints: Degenerative changes involve the spine, sacroiliac joints and hips. Soft tissues: There are small fat containing bilateral inguinal hernias. The anterior abdominal wall musculature is largely thinned. A small fat containing hernia involves the left anterior abdominal wall at the level of the umbilicus. Another hernia along the midline more superiorly contains a short segment of nonobstructed small bowel. IMPRESSION: 1. Thinning of the anterior abdominal wall musculature with small hernias as above, including a small supraumbilical midline hernia which contains a short segment of nonobstructed small bowel. 2. Mildly fatty liver. 3. Mild sigmoid colonic diverticulosis without evidence for diverticulitis. 4. Moderate hiatal hernia. 5. Small fat containing bilateral inguinal hernias. 6. Large prostate containing coarse calcifications. Thank you for allowing us to participate in the care of your patient. Dictated and Authenticated by: Luis Engel MD 04/07/2020 9:12 AM Central Time ([place] & [place]) CONFIDENTIALITY STATEMENT This report is intended only for use by the referring physician, and only in accordance with law. If you received this in error, call [phone]. Page 2 of 2 MTDD"
--- NOTE | 2020-04-15 14:43 | US ---
"PROCEDURE INFORMATION: Exam: US Abdomen, Limited; Right Upper Quadrant Exam date and time: 04/07/2020 4:40 AM Age: 70 years old Clinical indication: Abdominal pain; Tenderness; Right upper quadrant (ruq); Prior surgery; Surgery date: 6+ months; Surgery type: Patient states 8 surgeries on colon TECHNIQUE: Imaging protocol: US abdomen. Real time ultrasound with image documentation. Limited exam focused on the right upper quadrant. COMPARISON: US Abdomen Ltd 12/07/2013 3:12 PM (report not provided) FINDINGS: Liver: The liver is homogeneous in echotexture. No demonstrated mass or intrahepatic biliary ductal dilatation. Gallbladder: The gallbladder contains a nonmobile hyperechoic shadowing area, which could represent small layering stones or dense sludge. The gallbladder wall is not significantly thickened, and there is no significant pericholecystic fluid. Sonographic Couch sign reportedly could not be assessed due to patient pain medication. Common bile duct: The common bile duct is normal in size for a patient of this age at 5.2 mm. Pancreas: The pancreas is obscured by overlying bowel gas. Right kidney: The right kidney measures 11.7 x 6.3 x 4.3 cm. It contains a 1.7 x 1.2 x 1.3 cm simple cyst. No hydronephrosis or demonstrated stone or mass. Aorta: The aorta was not well visualized. As seen proximally, it is dilated up to 3.4 cm. Portal venous: Portal venous flow is normal in direction. Inferior vena cava: The IVC is present. IMPRESSION: 1. Gallbladder with nonmobile layering stones or dense sludge, without significant wall thickening or pericholecystic fluid. 2. Pancreas obscured by bowel gas. СВЕТЛАНА BROCK | Final Radiology Report CONFIDENTIALITY STATEMENT This report is intended only for use by the referring physician, and only in accordance with law. If you received this in error, call [phone]. Page 2 of 2 3. Aorta not well visualized, dilated up to 3.4 cm proximally. Consider alternate imaging for more complete evaluation or otherwise follow-up in 2 years. Thank you for allowing us to participate in the care of your patient. Dictated and Authenticated by: Luis Engel MD 04/07/2020 6:35 AM Central Time ([place] & [place]) CONFIDENTIALITY STATEMENT This report is intended only for use by the referring physician, and only in accordance with law. If you received this in error, call [phone]. Page 2 of 2 MTDD"
== END 2020-04-07 09:12 | disposition home or self-care (01) ==
LOC: JD.ED 03:18
DX: R10.11 Right upper quadrant pain (principal); J45.909 Unspecified asthma, uncomplicated; Z79.899 Other long term (current) drug therapy; Z87.891 Personal history of nicotine dependence
CPT/HCPCS: 36415; 74177; 76705; 80053; 83690; 83735; 85007; 85027; 96374; 96375; 99284; J1170; J2405; J7030; Q9963; Q9967

== ENCOUNTER 2022-10-30 23:01 | Inpatient (IN) | payer BC, OTHER ==
[2022-10-30] MEDS ORDERED: Morphine 4 MG/ML Syringe IVPUSH ONE (23:09)
[2022-10-30] MEDS ORDERED: Ondansetron 4 MG/2 ML SDV IVPUSH PRN (23:09)
[2022-10-30 23:23] LABS: BASOPHILS ABSOLUTE AUTO 0.04 K/mm3 (0.01-0.08); BASOPHILS PERCENT AUTO 0.4 % (0.1-1.2); EOSINOPHILS ABSOLUTE AUTO 0.68 K/mm3 (0.04-0.54); EOSINOPHILS PERCENT AUTO 6.7 (0.8-7.0); HEMATOCRIT 47.8 % (40.1-51.0); HEMOGLOBIN 16.5 gm/dl (13.7-17.5); IMMATURE GRAN ABSOLUTE AUTO 0.04 K/mm3 (0.00-0.10); IMMATURE GRAN PERCENT AUTO 0.4 % (<=1.0); LYMPHOCYTES PERCENT AUTO 9.9 % (21.8-53.1); MEAN CORPUSCULAR HGB CONC 34.5 g/dl (32.2-35.5); MEAN CORPUSCULAR VOLUME 98.4 fl (79.0-92.2); MEAN PLATELET VOLUME 9.6 fl (9.4-12.3); MONOCYTES ABSOLUTE AUTO 0.64 K/mm3 (0.30-0.82); MONOCYTES PERCENT AUTO 6.3 % (5.3-12.2); NEUTROPHILS ABSOLUTE AUTO 7.71 K/mm3 (1.78-5.38); NEUTROPHILS PERCENT AUTO 76.3 % (34.0-67.9); PLATELET COUNT,PLT 180 K/mm3 (163-337); RED BLOOD CELL COUNT 4.86 M/mm3 (4.63-6.08); WHITE BLOOD CELL COUNT,WBC 10.11 K/mm3 (4.23-9.07)
[2022-10-30 23:50] LABS: A/G RATIO 1.1 (1-2); ALBUMIN 3.4 g/dl (3.4-5.0); ANION GAP 8.2 (5-15); BILIRUBIN TOTAL 0.8 mg/dL (0.2-1.0); CALCIUM 8.6 mg/dL (8.5-10.1); EST CRCL DRUG DOSING (CG) 74.37 mL/min; POTASSIUM,K 4.2 mEq/L (3.5-5.1); PROTEIN TOTAL,TP 6.4 g/dl (6.4-8.2)
[2022-10-31] MEDS ORDERED: Iopamidol 612 MG/ML 100 ML Bottle IVPUSH ONE (00:12)
[2022-10-31] MEDS ORDERED: HYDROmorphone 0.5 MG/0.5 ML Syringe IVPUSH ONE (01:28)
[2022-10-31] MEDS ORDERED: Lactated Ringers 1,000 ML IV SCH (01:45)
[2022-10-31] MEDS ORDERED: Ondansetron 4 MG/2 ML SDV IVPUSH PRN (03:53)
[2022-10-31] MEDS: HYDROmorphone 0.5 MG/0.5 ML Syringe IVPUSH PRN ×5 (04:07→20:55)
[2022-10-31] MEDS: Piperacillin/Tazobactam 3.375 GM in Sodium Chloride 0.9% 100 ML IV SCH ×2 (04:08→04:18)
[2022-10-31 04:20] LABS: APPEARANCE,URINE CLEAR (Clear); BILIRUBIN,URINE NEGATIVE (Negative); COLOR,URINE YELLOW (Yellow); GLUCOSE,URINE NEGATIVE (Negative); KETONES,URINE TRACE (Negative); LEUKOCYTE ESTERASE,URINE NEGATIVE (Negative); NITRITE,URINE NEGATIVE (Negative); OCCULT BLOOD,URINE NEGATIVE (Negative); PH,URINE 5.5 (5.0-8.0); PROTEIN,URINE NEGATIVE (Negative)
[2022-10-31 04:29] LABS: BACTERIA,URINE RARE /hpf (FEW); EPITHELIAL CELLS,URINE NOT SEEN /hpf (0-5); RBC,URINE 0-5 /hpf (0-5); WBC,URINE 0-5 /hpf (0-5)
[2022-10-31 04:30] LABS: MUCUS,URINE NOT SEEN /hpf (FEW)
[2022-10-31] MEDS ORDERED: D5 1/2 NS w/ 20 mEq/L KCl 1,000 ML IV SCH (07:30)
[2022-10-31 08:05] LABS: HEMOGLOBIN 15.7 gm/dl (13.7-17.5); MEAN CORPUSCULAR HEMOGLOBIN 33.3 pg (25.7-32.2); MEAN CORPUSCULAR HGB CONC 33.4 g/dl (32.2-35.5); MEAN CORPUSCULAR VOLUME 99.6 fl (79.0-92.2); MEAN PLATELET VOLUME 10.1 fl (9.4-12.3); PLATELET COUNT,PLT 174 K/mm3 (163-337); RED BLOOD CELL COUNT 4.72 M/mm3 (4.63-6.08); WHITE BLOOD CELL COUNT,WBC 11.13 K/mm3 (4.23-9.07)
[2022-10-31 08:15] LABS: A/G RATIO 1.1 (1-2); ALBUMIN 3.1 g/dl (3.4-5.0); ANION GAP 8.3 (5-15); CALCIUM 8.3 mg/dL (8.5-10.1); CREATININE 1.1 mg/dL (0.7-1.3); EST CRCL DRUG DOSING (CG) 67.61 mL/min; POTASSIUM,K 4.3 mEq/L (3.5-5.1); PROTEIN TOTAL,TP 5.9 g/dl (6.4-8.2)
[2022-10-31] MEDS: Piperacillin/Tazobactam 4.5 GM in Sodium Chloride 0.9% 100 ML IV SCH ×2 (11:04→20:55)
[2022-10-31] MEDS ORDERED: Acetaminophen/HYDROcodone 325-10 MG Tab PO PRN (11:13)
[2022-10-31] MEDS ORDERED: Dextrose 5%-0.9% NaCl 1,000 ML IV SCH (11:30)
[2022-10-31] MEDS: Heparin Sodium 5,000 Units/ML Vial SUBCUT SCH ×2 (12:52→20:56)
[2022-10-31] MEDS: Pantoprazole 40 MG Vial IVPUSH SCH (12:53)
[2022-10-31] MEDS ORDERED: Albuterol 6.7 GM Inhaler INH PRN (14:12)
[2022-10-31] MEDS: Albuterol/Ipratropium 3.0-0.5 MG/3 ML Neb Soln NEB PRN ×2 (14:38→20:20)
[2022-10-31] MEDS: Formoterol/Mometasone 200-5 MCG 8.8 GM Inhaler IH SCH (20:20)
[2022-11-01] MEDS: Albuterol/Ipratropium 3.0-0.5 MG/3 ML Neb Soln NEB PRN ×2 (00:21→08:26)
[2022-11-01] MEDS: Heparin Sodium 5,000 Units/ML Vial SUBCUT SCH ×2 (05:05→11:43)
[2022-11-01] MEDS: Piperacillin/Tazobactam 4.5 GM in Sodium Chloride 0.9% 100 ML IV SCH ×2 (05:05→11:43)
[2022-11-01 06:02] LABS: BASOPHILS ABSOLUTE AUTO 0.03 K/mm3 (0.01-0.08); BASOPHILS PERCENT AUTO 0.3 % (0.1-1.2); EOSINOPHILS ABSOLUTE AUTO 0.44 K/mm3 (0.04-0.54); EOSINOPHILS PERCENT AUTO 4.7 (0.8-7.0); HEMATOCRIT 43.8 % (40.1-51.0); HEMOGLOBIN 14.5 gm/dl (13.7-17.5); IMMATURE GRAN ABSOLUTE AUTO 0.04 K/mm3 (0.00-0.10); IMMATURE GRAN PERCENT AUTO 0.4 % (<=1.0); LYMPHOCYTES ABSOLUTE AUTO 1.34 K/mm3 (1.32-3.57); LYMPHOCYTES PERCENT AUTO 14.3 % (21.8-53.1); MEAN CORPUSCULAR HEMOGLOBIN 33.6 pg (25.7-32.2); MEAN CORPUSCULAR HGB CONC 33.1 g/dl (32.2-35.5); MEAN CORPUSCULAR VOLUME 101.4 fl (79.0-92.2); MEAN PLATELET VOLUME 10.4 fl (9.4-12.3); MONOCYTES PERCENT AUTO 11.7 % (5.3-12.2); NEUTROPHILS ABSOLUTE AUTO 6.43 K/mm3 (1.78-5.38); NEUTROPHILS PERCENT AUTO 68.6 % (34.0-67.9); PLATELET COUNT,PLT 176 K/mm3 (163-337); RED BLOOD CELL COUNT 4.32 M/mm3 (4.63-6.08); WHITE BLOOD CELL COUNT,WBC 9.38 K/mm3 (4.23-9.07)
[2022-11-01 06:07] LABS: A/G RATIO 0.9 (1-2); ALBUMIN 2.6 g/dl (3.4-5.0); ANION GAP 9.4 (5-15); BUN/CREATININE RATIO 10.8 (14-18); CREATININE 1.3 mg/dL (0.7-1.3); EST CRCL DRUG DOSING (CG) 57.21 mL/min; POTASSIUM,K 4.4 mEq/L (3.5-5.1); PROTEIN TOTAL,TP 5.4 g/dl (6.4-8.2)
[2022-11-01] MEDS: HYDROmorphone 0.5 MG/0.5 ML Syringe IVPUSH PRN (08:00)
[2022-11-01] MEDS: Pantoprazole 40 MG Vial IVPUSH SCH (08:04)
[2022-11-01] MEDS: Formoterol/Mometasone 200-5 MCG 8.8 GM Inhaler IH SCH (08:28)
[2022-11-01] MEDS ORDERED: Non-Formulary Medication 1 Each SCH (09:00)
[2022-11-01 17:19] VITALS: BP 107/79; PULSE 77
== END 2022-11-01 15:53 | disposition home or self-care (01) ==
LOC: JD.ED 23:01 → JD.MS 10-31 10:40
PROVIDERS: ADMIT Surgery; ATTEND Surgery
DX: K81.0 Acute cholecystitis (principal); K57.30 Diverticulosis of large intestine without perforation or abscess without bleeding; K21.9 Gastro-esophageal reflux disease without esophagitis; F41.9 Anxiety disorder, unspecified; J44.9 Chronic obstructive pulmonary disease, unspecified; Z98.49 Cataract extraction status, unspecified eye; Z98.890 Other specified postprocedural states; Z79.899 Other long term (current) drug therapy; Z79.51 Long term (current) use of inhaled steroids; Z90.49 Acquired absence of other specified parts of digestive tract; Z93.3 Colostomy status
CPT/HCPCS: 36415; 71045; 71045-26; 74177; 74177-26; 76705; 76705-26; 80053; 81001; 82947; 83605; 83690; 84484; 85025; 85027; 93005; 93010; 94640; 94760; 96361; 96365; 96366; 96367; 96372; 96375; 96376; 99285; 99285-25; A9270-GY; C9113; J1170; J1644; J2270; J2405; J2543; J3480; J3490; J7042; J7120; J7620-GY; Q9967

== ENCOUNTER 2024-02-06 07:37 | Emergency (ER) | payer BC ==
[2024-02-06] MEDS: Lidocaine 1% 10 ML MDV INJECT ONE (08:20)
[2024-02-06 08:53] VITALS: BP 160/102; PULSE 73
== END 2024-02-06 08:53 | disposition home or self-care (01) ==
LOC: JD.ED 07:37
DX: M70.21 Olecranon bursitis, right elbow (principal); F17.210 Nicotine dependence, cigarettes, uncomplicated; J45.909 Unspecified asthma, uncomplicated; K21.9 Gastro-esophageal reflux disease without esophagitis; Z79.899 Other long term (current) drug therapy
CPT/HCPCS: 20605; 99283-25; J3490

== ENCOUNTER 2024-02-09 07:24 | Emergency (ER) | payer BC ==
[2024-02-09] MEDS: Triamcinolone Acetonide 40 MG/ML 1 ML SDV INJECT ONE (08:08)
[2024-02-09] MEDS: cefTRIAXone 2 GM in Sodium Chloride 0.9% 100 ML IV ONE (08:08)
[2024-02-09] MEDS: Lidocaine 1% 10 ML MDV INJECT ONE (08:09)
[2024-02-09] MEDS: Sodium Chloride 0.9% 10 ML Syringe FLUSH PRN (08:09)
[2024-02-09 08:33] LABS: C-REACTIVE PROTEIN 8.28 mg/dL (<0.30)
[2024-02-09 08:43] LABS: URIC ACID 6.2 mg/dL (3.5-7.2)
[2024-02-09 08:52] VITALS: BP 131/85; PULSE 77
== END 2024-02-09 08:45 | disposition home or self-care (01) ==
LOC: JD.ED 07:24
DX: M70.21 Olecranon bursitis, right elbow (principal); L03.113 Cellulitis of right upper limb; K21.9 Gastro-esophageal reflux disease without esophagitis; Z79.899 Other long term (current) drug therapy
CPT/HCPCS: 20605; 36415; 84550; 86140; 96365; 99152; 99283; 99283-25; J0696; J3301; J3490

== ENCOUNTER 2024-04-10 11:43 | Emergency (ER) | payer BC ==
[2024-04-10] MEDS: Triamcinolone Acetonide 40 MG/ML 1 ML SDV INJECT ONE (12:59)
[2024-04-10] MEDS: Bupivacaine 0.25% 10 ML SDV INJECT ONE (12:59)
[2024-04-10] MEDS: Lidocaine 1% 10 ML MDV INJECT ONE (12:59)
[2024-04-10 13:48] LABS: WBC,SYNOVIAL FLUID 139 cells/uL (0-200)
[2024-04-10 13:52] LABS: SITE,SYNOVIAL FLUID RIGHT ELBOW
[2024-04-10 13:57] VITALS: BP 145/87; PULSE 78
[2024-04-10 13:57] LABS: VOLUME SYNOVIAL FLUID 38
[2024-04-10 13:58] LABS: APPEARANCE SYNOVIAL FLUID SLIGHTLY CLOUDY (CLEAR); COLOR,SYNOVIAL FLUID YELLOW
== END 2024-04-10 13:36 | disposition home or self-care (01) ==
LOC: JD.ED 11:43
DX: M70.21 Olecranon bursitis, right elbow (principal); J45.909 Unspecified asthma, uncomplicated; Z90.89 Acquired absence of other organs; Z79.51 Long term (current) use of inhaled steroids; Z79.1 Long term (current) use of non-steroidal anti-inflammatories (NSAID); Z79.899 Other long term (current) drug therapy
CPT/HCPCS: 20605; 73080; 89060; 99283; J0665; J3301; J3490

== ENCOUNTER 2024-06-05 10:14 | Observation (INO) | payer BC, MEDICARE ==
[~2024-06-05 10:14] MED LIST: Sodium Chloride 0.9% 10 ML Syringe FLUSH PRN
[2024-06-05] MEDS: Lactated Ringers 1,000 ML IV SCH ×2 (10:30→19:47)
[2024-06-05] MEDS ORDERED: Rocuronium 50 MG/5 ML Vial ONE ×3 (11:18→14:14)
[2024-06-05] MEDS ORDERED: Dexamethasone 4 MG/ML 5 ML MDV ONE (11:18)
[2024-06-05] MEDS ORDERED: Ondansetron 4 MG/2 ML SDV ONE (11:18)
[2024-06-05] MEDS ORDERED: Lidocaine 1% 4 ML ONE (11:19)
[2024-06-05] MEDS ORDERED: fentaNYL 100 MCG/2 ML SDV ONE ×2 (11:19→12:19)
[2024-06-05] MEDS ORDERED: Midazolam 1 MG/ML 2 ML SDV ONE (11:19)
[2024-06-05] MEDS ORDERED: Propofol 200 MG/20 ML SDV ONE ×2 (11:19→12:17)
[2024-06-05] MEDS ORDERED: ceFAZolin 2 GM Vial ONE (11:22)
[2024-06-05] MEDS: Bupivacaine 0.5% 30 ML SDV ONE (11:54)
[2024-06-05] MEDS ORDERED: ePHEDrine 50 MG/ML SDV ONE (11:59)
[2024-06-05] MEDS ORDERED: Glycopyrrolate 0.2 MG/ML 2 ML SDV ONE (12:05)
[2024-06-05] MEDS ORDERED: dexmedeTOMIDine HCl 200 MCG/2 ML SDV ONE (12:20)
[2024-06-05] MEDS ORDERED: Ondansetron 4 MG/2 ML SDV IVPUSH PRN (13:55)
[2024-06-05] MEDS ORDERED: HYDROmorphone 0.5 MG/0.5 ML Syringe IVPUSH PRN (13:55)
[2024-06-05] MEDS ORDERED: fentaNYL 100 MCG/2 ML SDV IVPUSH PRN (13:55)
[2024-06-05] MEDS ORDERED: HYDROmorphone 0.5 MG/0.5 ML Syringe ONE (14:17)
[2024-06-05] MEDS ORDERED: Sugammadex Sodium 200 MG/2 ML VIAL IV ONE (14:27)
[2024-06-05] MEDS ORDERED: Ketorolac 30 MG/ML SDV ONE (14:27)
[2024-06-05] MEDS: EPINEPHrine 1 MG/ML SDV ONE (15:45)
[2024-06-05] MEDS ORDERED: Ondansetron 4 MG Tab.DIS PO PRN (16:14)
[2024-06-05] MEDS ORDERED: Promethazine 25 MG Tab PO PRN (16:14)
[2024-06-05] MEDS ORDERED: Acetaminophen 325 MG Tab PO PRN (16:14)
[2024-06-05] MEDS ORDERED: Benzocaine/Cetylpyridinium/Menthol Lozenge MUCMEM PRN (16:20)
[2024-06-05] MEDS ORDERED: Simethicone 80 MG Tab.Chew PO PRN (16:21)
[2024-06-05] MEDS ORDERED: diphenhydrAMINE 50 MG/ML SDV IVPUSH PRN (16:21)
[2024-06-05] MEDS: Sodium Chloride 0.9% 10 ML Syringe FLUSH SCH (17:09)
[2024-06-05] MEDS: Formoterol/Mometasone 200-5 MCG 8.8 GM Inhaler INH SCH (20:17)
[2024-06-05] MEDS: oxyCODONE 5 MG Tab PO PRN (20:29)
[2024-06-06] MEDS: HYDROmorphone 0.5 MG/0.5 ML Syringe IVPUSH PRN (02:10)
[2024-06-06 04:42] LABS: BASOPHILS PERCENT AUTO 0.1 % (0.0-1.0); EOSINOPHILS PERCENT AUTO 0.1 % (0.0-6.0); HEMATOCRIT 45.2 % (42.0-52.0); HEMOGLOBIN 14.9 gm/dl (14.0-18.0); IMMATURE GRAN ABSOLUTE AUTO 0.04 K/mm3 (0.00-0.05); IMMATURE GRAN PERCENT AUTO 0.4 % (0.0-0.4); LYMPHOCYTES ABSOLUTE AUTO 0.8 K/mm3 (1.0-4.8); LYMPHOCYTES PERCENT AUTO 7.2 % (24.0-44.0); MEAN CORPUSCULAR HEMOGLOBIN 33.6 pg (28.0-32.0); MEAN CORPUSCULAR VOLUME 101.8 fl (83.0-99.0); MEAN PLATELET VOLUME 10.8 fl (9.4-12.4); MONOCYTES ABSOLUTE AUTO 0.9 K/mm3 (0.0-0.8); MONOCYTES PERCENT AUTO 8.7 % (0.0-8.0); NEUTROPHILS ABSOLUTE AUTO 8.9 K/mm3 (1.8-7.7); NEUTROPHILS PERCENT AUTO 83.5 % (41.0-71.0); PLATELET COUNT,PLT 143 K/mm3 (150-400); RED BLOOD CELL COUNT 4.44 M/mm3 (4.52-5.90); WHITE BLOOD CELL COUNT,WBC 10.66 K/mm3 (3.9-11.3)
[2024-06-06 05:11] LABS: ANION GAP 10.8 (5-15); BUN/CREATININE RATIO 17.8 (14-18); CALCIUM 8.2 mg/dL (8.5-10.1); CREATININE 0.9 mg/dL (0.7-1.3); EST CRCL DRUG DOSING (CG) 84.99 mL/min; POTASSIUM,K 4.8 mEq/L (3.5-5.1)
[2024-06-06] MEDS: Albuterol 6.7 GM Inhaler INH SCH (08:06)
[2024-06-06 09:35] VITALS: BP 137/79; PULSE 63
== END 2024-06-06 10:56 | disposition home or self-care (01) ==
LOC: JD.SDS 10:14 → JD.MS 16:15
PROVIDERS: ADMIT Surgery; ATTEND Surgery
DX: K44.9 Diaphragmatic hernia without obstruction or gangrene (principal); K66.0 Peritoneal adhesions (postprocedural) (postinfection); K21.00 Gastro-esophageal reflux disease with esophagitis, without bleeding; F17.200 Nicotine dependence, unspecified, uncomplicated; Z79.899 Other long term (current) drug therapy
CPT/HCPCS: 36415; 43235; 43280; 80048; 85025; 94640; 94760; 94761; A9270; C1781; J0171; J0665; J0690; J1100; J1171; J1885; J2250; J2405; J2704; J3010; J3490; J7120

== ENCOUNTER 2024-06-07 09:03 | Emergency (ER) | payer BC, MEDICARE ==
[2024-06-07 09:15] VITALS: BP 124/75; PULSE 84
[2024-06-07] MEDS ORDERED: Sodium Chloride 0.9% 10 ML Syringe FLUSH PRN (09:23)
[2024-06-07] MEDS: Ondansetron 4 MG/2 ML SDV IVPUSH ONE (09:54)
[2024-06-07] MEDS: HYDROmorphone 0.5 MG/0.5 ML Syringe IVPUSH ONE (09:54)
[2024-06-07 09:55] LABS: BASOPHILS PERCENT AUTO 0.3 % (0.0-1.0); EOSINOPHILS ABSOLUTE AUTO 0.1 K/mm3 (0.0-0.4); EOSINOPHILS PERCENT AUTO 0.8 % (0.0-6.0); HEMATOCRIT 40.7 % (42.0-52.0); HEMOGLOBIN 14.1 gm/dl (14.0-18.0); IMMATURE GRAN ABSOLUTE AUTO 0.04 K/mm3 (0.00-0.05); IMMATURE GRAN PERCENT AUTO 0.4 % (0.0-0.4); LYMPHOCYTES ABSOLUTE AUTO 0.7 K/mm3 (1.0-4.8); LYMPHOCYTES PERCENT AUTO 6.2 % (24.0-44.0); MEAN CORPUSCULAR HEMOGLOBIN 33.6 pg (28.0-32.0); MEAN CORPUSCULAR HGB CONC 34.6 g/dl (32.0-36.0); MEAN PLATELET VOLUME 10.1 fl (9.4-12.4); MONOCYTES ABSOLUTE AUTO 1.6 K/mm3 (0.0-0.8); MONOCYTES PERCENT AUTO 13.9 % (0.0-8.0); NEUTROPHILS ABSOLUTE AUTO 8.8 K/mm3 (1.8-7.7); NEUTROPHILS PERCENT AUTO 78.4 % (41.0-71.0); PLATELET COUNT,PLT 146 K/mm3 (150-400); WHITE BLOOD CELL COUNT,WBC 11.18 K/mm3 (3.9-11.3)
[2024-06-07 10:01] LABS: MEAN CORPUSCULAR VOLUME 96.9 fl (83.0-99.0)
[2024-06-07 10:16] LABS: A/G RATIO 1.1 (1-2); ALBUMIN 2.9 g/dl (3.4-5.0); ANION GAP 9.8 (5-15); BILIRUBIN TOTAL 0.9 mg/dL (0.2-1.0); C-REACTIVE PROTEIN 7.07 mg/dL (<0.30); EST CRCL DRUG DOSING (CG) 72.21 mL/min; POTASSIUM,K 3.8 mEq/L (3.5-5.1); PROTEIN TOTAL,TP 5.6 g/dl (6.4-8.2)
[2024-06-07 10:34] LABS: SLIDE REVIEW ABNORMAL SMEAR
[2024-06-07] MEDS: oxyCODONE 5 MG Tab PO ONE (11:08)
== END 2024-06-07 11:15 | disposition home or self-care (01) ==
LOC: JD.ED 09:03
DX: G89.18 Other acute postprocedural pain (principal)
CPT/HCPCS: 36415; 80053; 84484; 85025; 86140; 93005; 96374; 96375; 99284; A9270; J2405; 93010

== ENCOUNTER 2024-08-08 18:55 | Emergency (ER) | payer BC ==
[2024-08-08 20:10] VITALS: PULSE 65
[2024-08-08] MEDS ORDERED: Sodium Chloride 0.9% 10 ML Syringe FLUSH PRN (20:13)
[2024-08-08] MEDS ORDERED: Naloxone 0.4 MG/ML SDV IVPUSH PRN (20:34)
[2024-08-08 20:37] LABS: BASOPHILS ABSOLUTE AUTO 0.1 K/mm3 (0.0-0.2); EOSINOPHILS ABSOLUTE AUTO 0.8 K/mm3 (0.0-0.4); EOSINOPHILS PERCENT AUTO 10.5 % (0.0-6.0); HEMATOCRIT 44.8 % (42.0-52.0); IMMATURE GRAN ABSOLUTE AUTO 0.02 K/mm3 (0.00-0.05); IMMATURE GRAN PERCENT AUTO 0.3 % (0.0-0.4); LYMPHOCYTES PERCENT AUTO 14.4 % (24.0-44.0); MEAN CORPUSCULAR HEMOGLOBIN 32.5 pg (28.0-32.0); MEAN CORPUSCULAR HGB CONC 33.5 g/dl (32.0-36.0); MEAN CORPUSCULAR VOLUME 97.2 fl (83.0-99.0); MEAN PLATELET VOLUME 9.8 fl (9.4-12.4); MONOCYTES ABSOLUTE AUTO 0.7 K/mm3 (0.0-0.8); MONOCYTES PERCENT AUTO 9.9 % (0.0-8.0); NEUTROPHILS ABSOLUTE AUTO 4.6 K/mm3 (1.8-7.7); NEUTROPHILS PERCENT AUTO 63.9 % (41.0-71.0); PLATELET COUNT,PLT 158 K/mm3 (150-400); RED BLOOD CELL COUNT 4.61 M/mm3 (4.52-5.90); WHITE BLOOD CELL COUNT,WBC 7.24 K/mm3 (3.9-11.3)
[2024-08-08] MEDS: Ondansetron 4 MG/2 ML SDV IVPUSH ONE (20:49)
[2024-08-08] MEDS: fentaNYL 100 MCG/2 ML SDV IVPUSH ONE ×2 (20:50→22:41)
[2024-08-08 21:01] LABS: A/G RATIO 1.1 (1-2); ALBUMIN 3.2 g/dl (3.4-5.0); ANION GAP 13.7 (5-15); BILIRUBIN TOTAL 0.6 mg/dL (0.2-1.0); BUN/CREATININE RATIO 12.5 (14-18); C-REACTIVE PROTEIN 0.16 mg/dL (<0.30); CALCIUM 8.6 mg/dL (8.5-10.1); CREATININE 0.8 mg/dL (0.7-1.3); EST CRCL DRUG DOSING (CG) 90.26 mL/min; POTASSIUM,K 3.7 mEq/L (3.5-5.1); PROTEIN TOTAL,TP 6.1 g/dl (6.4-8.2)
[2024-08-08] MEDS ORDERED: Iopamidol 612 MG/ML 100 ML Bottle IVPUSH ONE (21:11)
[2024-08-08 21:12] LABS: LACTIC ACID 2.2 mmol/L (0.4-2.0)
[2024-08-08] MEDS: Sodium Chloride 0.9% 1,000 ML IV SCH (22:00)
[2024-08-08] MEDS: Tamsulosin 0.4 MG Cap.ER PO ONE (22:54)
[2024-08-08 23:37] VITALS: BP 154/92
[2024-08-08 23:37] LABS: APPEARANCE,URINE CLEAR (Clear); BILIRUBIN,URINE NEGATIVE (Negative); COLOR,URINE YELLOW (Yellow); GLUCOSE,URINE NEGATIVE (Negative); KETONES,URINE NEGATIVE (Negative); LEUKOCYTE ESTERASE,URINE TRACE (Negative); NITRITE,URINE NEGATIVE (Negative); OCCULT BLOOD,URINE 2+ (Negative); PROTEIN,URINE 1+ (Negative); UROBILINOGEN,URINE 0.2 (0.2-1.0)
[2024-08-08 23:49] LABS: BACTERIA,URINE FEW /hpf (FEW); EPITHELIAL CELLS,URINE 0-5 /hpf (0-5); MUCUS,URINE FEW /hpf (FEW); WBC,URINE 0-5 /hpf (0-5)
[2024-08-09] MEDS: Ketorolac 15 MG/ML SDV IVPUSH ONE (00:30)
== END 2024-08-09 01:42 | disposition home or self-care (01) ==
LOC: JD.ED 18:55
DX: N13.2 Hydronephrosis with renal and ureteral calculous obstruction (principal); J45.909 Unspecified asthma, uncomplicated; Z79.51 Long term (current) use of inhaled steroids; Z79.899 Other long term (current) drug therapy
CPT/HCPCS: 36415; 74176; 80053; 81001; 83605; 83690; 85025; 86140; 87086; 93005; 96361; 96374; 96375; 96376; 99284; A9270; J1885; J2405; J3010; J7030

== ENCOUNTER 2024-12-11 17:24 | Emergency (ER) | payer BC ==
[2024-12-11] MEDS: Ibuprofen 800 MG Tab PO ONE (20:35)
[2024-12-11 20:47] VITALS: BP 128/84; PULSE 70
== END 2024-12-11 20:39 | disposition home or self-care (01) ==
LOC: JD.ED 17:24
DX: S22.32XA Fracture of one rib, left side, initial encounter for closed fracture (principal); J45.909 Unspecified asthma, uncomplicated; Z79.51 Long term (current) use of inhaled steroids; Z79.899 Other long term (current) drug therapy; W22.8XXA Striking against or struck by other objects, initial encounter
CPT/HCPCS: 71101; 99284; A9270

== ENCOUNTER 2025-01-17 07:48 | Day surgery (SDC) | payer BC, MEDICARE ==
[~2025-01-17 07:48] MED LIST changes: +Sodium Chloride 0.9% 10 ML Syringe FLUSH SCH
[2025-01-17] MEDS: Lactated Ringers 1,000 ML IV SCH (08:05)
[2025-01-17] MEDS ORDERED: Propofol 200 MG/20 ML SDV ONE (09:21)
[2025-01-17 10:45] VITALS: BP 133/87; PULSE 80
== END 2025-01-17 10:20 | disposition home or self-care (01) ==
LOC: JD.SDS 07:48
PROVIDERS: ATTEND Surgery
DX: R13.19 Other dysphagia (principal); K44.9 Diaphragmatic hernia without obstruction or gangrene; F41.9 Anxiety disorder, unspecified; J45.909 Unspecified asthma, uncomplicated; Z79.899 Other long term (current) drug therapy
CPT/HCPCS: 43235; J2003; J2704; J7120